=== PATIENT | female | born 1965 | race African-American/Black ===

== ENCOUNTER 2021-03-09 11:55 | Emergency (ER) | payer OTHER, SELFPAY ==
[2021-03-09 12:15] VITALS: BP 148/91; PULSE 97; RESP 20; TEMP 36.6; O2SAT 99
--- NOTE | 2021-03-09 13:44 | ED_ITS ---
HPI - Headache General Chief Complaint: Headache Stated Complaint: Medication Refill,Headache Source: patient and RN notes reviewed Limitations: no limitations History of Present Illness HPI Narrative: The patient, who has a known history of hypertension, presents with medication refill. Patient states that she has a long history of HTN for which she has had good care including yearly labs. However she moved from [place] and her old primary doctor will not refill the medication. Sometimes - when she does not take her medicine like today only - she develops headaches. She complains of mild, gradual onset typical headache without fever, URI?sinusitis, lateralizing weakness, speech/visual changes, neck pain; no loss of taste/smell, CP, rash, S OB. Related Data Home Medications Medication Instructions Recorded Confirmed lisinopril-hydrochlorothiazide 1 tablet PO DAILY 03/09/21 03/09/21 Allergies Allergy/AdvReac Type Severity Reaction Status Date / Time No Known Allergies Allergy Verified 03/09/21 13:01 Review of Systems Review of Systems: General/Constitutional: No weight loss,fever Respiratory: Denies: Hemoptysis Gastrointestinal: No Vomiting, Bleeding-rectal Neurologic: No Focal Weakness,Sz Hematologic: Denies: Petechiae/Purpura Psychiatric: No: Suicida ideationl PMFSH Comments At time of signature, agree with nursing past medical, surgical, social and family history. There is no relevant family history pertinent to the presenting complaint Exam Narrative: General Appearance: Well appearing, No distress EYE: PERRLA, Conjunctiva clear, EOMI Neurological: A&O x3, CN II-X intact Ears: External ear normal Nose: Normal nose Mouth/Throat: Normal appearing, Normal lips, Supple Respiratory: Airway patent, No respiratory distress CV: RRR Musculoskeletal: Full ROM Skin: Warm, Dry Psychiatric: Normal mood, Normal affect Course Vital Signs Vital signs: Vital Signs Temperature 97.9 F 03/09/21 12:15 Pulse Rate 97 03/09/21 12:15 Respiratory Rate 03/09/21 12:15 Blood Pressure 148/91 H 03/09/21 12:15 Pulse Oximetry 99 03/09/21 12:15 Temperature 97.9 F 03/09/21 12:15 Pulse Rate 97 03/09/21 12:15 Respiratory Rate 20 03/09/21 12:15 Blood Pressure 148/91 H 03/09/21 12:15 Pulse Oximetry 99 03/09/21 12:15 Discharge Plan Discharge Clinical Impression: History of headache, History of hypertension, Medication refill Patient Disposition: Home, Self-Care Condition: Stable Instructions: Hypertension (ED) Prescriptions: New lisinopril-hydrochlorothiazide 20-12.5 mg tablet 1 tablet PO DAILY Qty: 90 RF: 1 [id number] [Fioricet] 50-300-40 mg capsule 1 cap PO BID PRN (Reason: pain) Qty: 10 RF: 0 No Action lisinopril-hydrochlorothiazide 20-12.5 mg Tablet 1 tablet PO DAILY RF: 0 Follow-up/Referrals: PHYSICIAN,NUT PICKER [Primary Care Provider] - Stand Alone Forms: Work/School Release IP
== END 2021-03-09 13:43 | disposition home or self-care (01) ==
PROVIDERS: Emergency Provider Emergency Medicine
DX: R51.9 Headache, unspecified (principal); I10 Essential (primary) hypertension; Z76.0 Encounter for issue of repeat prescription
CPT/HCPCS: 99203; G0463